=== PATIENT | female | born 1970 | race African-American/Black ===

== ENCOUNTER 2016-07-10 22:10 | Emergency (ER) | payer MEDICARE, OTHER ==
[~2016-07-10] VITALS: Ht 157.5 cm; Wt 149.7 kg
[2016-07-10 22:10] VITALS: BP 132/75
[~2016-07-10 22:10] MED LIST: ACET650S19 PO; ATOR20TA PO; CA C1TAB36 PO; CARV3.12 PO; CHOL20004 PO; CIPR500T94 PO; DIPH1TAB PO; FERR-26 PO; HYDR-971 PO; Heparin ID; INSU100I17 SQ; INSU100V13 SQ; LAMO200T25 PO; LEVO50TA PO; LINA5TAB PO; LURA120T PO; MIRT15TA PO; MONT10TA9 PO; ONDA8TAB9 PO; OXYB10TA7 PO; POLY17PO5 PO; SENN8.6T3 PO; VANC125C10 PO; VITA1CAP5 PO
--- NOTE | 2016-07-10 23:29 | PHYS DOC ---
Past Medical History Past Medical History: Anemia, Asthma, Bipolar, CHF, Constipation, Diabetes- Type II, High Cholesterol, Hypertension, Hypothyroid, UTI Additional Past Medical Histor: Sleep Apnea, Spina Bifida Past Surgical History: Cholecystectomy, Tonsillectomy Additional Past Surgical Histo: R BKA, Back Alcohol Use: None Drug Use: None Adult General Chief Complaint Chief Complaint: UPPER EXTREMITY PAIN HPI HPI Patient is a 46 year old female who presents from nursing facility for days of worsening left shoulder pain without injury. States she has severe anterior shoulder pain, constant, achy, worse with use. Her pain is not controlled by tylenol. She denies chest pain, dyspnea, numbness, tingling, weakness, dyspnea, cough, fever or chills. Review of Systems Review of Systems Constitutional: Denies fever or chills [] Eyes: Denies change in visual acuity, redness, or eye pain [] HENT: Denies nasal congestion or sore throat [] Respiratory: Denies cough or shortness of breath [] Cardiovascular: No additional information not addressed in HPI [] GI: Denies abdominal pain, nausea, vomiting, bloody stools or diarrhea [] : Denies dysuria or hematuria [] Musculoskeletal: Denies back pain [] Integument: Denies rash or skin lesions [] Neurologic: Denies headache, focal weakness or sensory changes [] Endocrine: Denies polyuria or polydipsia [] Current Medications Current Medications Current Medications Medications (Trade) Dose Ordered Sig/Rancho Start Time Stop Time Status Last Admin Dose Admin Acetaminophen/ Hydrocodone Bitart (Lortab 5/325) 1 tab 1X ONCE 07/10/16 23:30 07/10/16 23:32 DC 07/11/16 00:15 1 TAB Allergies Allergies Allergies Coded Allergies Type Severity Reaction Last Updated Verified I S O L A T I O N *CONTACT* Allergy Unknown 04/15/16 Yes No Known Medication Allergies Allergy Unknown 04/15/16 Yes Physical Exam Physical Exam Constitutional: Well developed, well nourished, no acute distress, non-toxic appearance. [] HENT: Normocephalic, atraumatic, bilateral external ears normal, oropharynx moist, nose normal. [] Eyes: PERRLA, EOMI. [] Neck: Normal range of motion, supple. [] Cardiovascular:Heart rate regular rhythm [] Lungs & Thorax: Bilateral breath sounds clear to auscultation [] Abdomen: Bowel sounds normal, soft, no tenderness. [] Skin: Warm, dry, no erythema, no rash. [] Back: No tenderness, no CVA tenderness. [] Extremities: LUE with no obvious deformity or discoloration; Has tenderness to anterior soft tissues without bony tenderness; Full ROM with shoulder/elbow/ wrist/hand, but has shoulder pain with any ROM of shoulder; Can pronate/supinate ; Can make fist/ok sign/thumb up/finger cross and spread; Can flex/ex wrist; Good radial pulse and brisk cap refill equal bilaterally; sensation intact to light touch m/u/r/ax nerves Neurologic: Alert and oriented X 3, normal motor function, normal sensory function, no focal deficits noted. [] Psychologic: Affect normal, judgement normal, mood normal. [] Current Patient Data Vital Signs Vital Signs Date Time Temp Pulse Resp B/P Pulse Ox O2 Delivery O2 Flow Rate FiO2 07/10/16 22:10 97.8 92 18 132/75 100 Nasal Cannula 2 97.8 Course & Med Decision Making Course & Med Decision Making Encouraged her to f/u with her PCP for nonemergent imaging for suspected arthropathy vs rotator cuff pathology. Return precautions given. She understood. Dragon Disclaimer Dragon Disclaimer This electronic medical record was generated, in whole or in part, using a voice recognition dictation system. Departure Departure Impression: Primary Impression: Left shoulder pain Disposition: HOME, SELF-CARE Condition: STABLE Referrals: MIRIAN YOUNG MD (PCP) Patient Instructions: Shoulder Pain, [id number] Additional Instructions: Discuss further workup and pain control with your primary care doctor. Return for any concerns. Problem Qualifiers Primary Impression: Left shoulder pain Chronicity: acute Qualified Code: M25.512 - Pain in left shoulder Priya KENDRICK MD Jul 10, 2016 23:29
[2016-07-10] MEDS ORDERED: HYDROCODONE/APAP 5/325MG TABLET. PO ONE (23:30)
== END 2016-07-11 00:26 | disposition home or self-care (01) ==
LOC: ER 22:10
DX: M25.512 Pain in left shoulder (principal); E03.9 Hypothyroidism, unspecified; E11.9 Type 2 diabetes mellitus without complications; E78.00 Pure hypercholesterolemia, unspecified; G47.30 Sleep apnea, unspecified; I11.0 Hypertensive heart disease with heart failure; I50.9 Heart failure, unspecified; J45.909 Unspecified asthma, uncomplicated; Z87.440 Personal history of urinary (tract) infections; Z90.49 Acquired absence of other specified parts of digestive tract; Z91.041 Radiographic dye allergy status
CPT/HCPCS: 99284